=== PATIENT | male | born 2000 | race Caucasian/White ===

== ENCOUNTER 2020-06-29 11:17 | Emergency (ER) | payer BC, OTHER, SELFPAY ==
[2020-06-29 11:23] VITALS: BP 140/68; PULSE 89; RESP 15; TEMP 37.2; O2SAT 98; BMI 32.3
[2020-06-29] MEDS: BACITRACIN OINT 0.9 GM PCKT 1 APPLIC TOP (11:28)
[2020-06-29] MEDS: TET,DIPH,PERTUSS(ACELL),VAC/PF 0.5 ML SYRINGE IM (11:28)
[2020-06-29] MEDS: LIDO 1%/SOD BICARB 8.4% (10ML) 10 ML SYRINGE INJ (11:28)
--- NOTE | 2020-06-29 12:19 | ED.WOUNDLAC ---
HPI - Wound/Laceration <WINSOME Mcmahon - Last Filed: 06/29/20 12:55> General Chief Complaint: Extremity Injury, Upper Stated Complaint: CUT THUMB OF LEFT HAND Time Seen by Provider: 06/29/20 11:20 Source: patient Mode of arrival: Ambulatory Limitations: no limitations History of Present Illness HPI narrative: This is a healthy 19-year-old male, nonsmoker, who presents to ED with mother with chief complain of laceration on his non dominant hand left thumb with a clean pocket knife 20 minutes before he came to ED. patient was opening a box with a pocket knife and accidentally cut dorsal aspect of proximal left thumb. Patient reports is able to move his thumb without difficulty and has intact sensation. He had applied pressure dressing to stop the bleeding. Unknown last tetanus immunization. Patient works as a roofer assistant. Related Data Allergies Allergy/AdvReac Type Severity Reaction Status Date / Time No Known Allergies Allergy Uncoded 06/29/20 11:28 Review of Systems <WINSOME Mcmahon - Last Filed: 06/29/20 12:55> Review of Systems Narrative: General: Denies fever, chills, fatigue, malaise, sweats. Respiratory: Denies dyspnea, cough, wheezing, hemoptysis, sputum. Gastrointestinal: Denies nausea, vomiting, abdominal pain, diarrhea, constipation, melena. Musculoskeletal: See HPI Skin: See HPI Patient History <WINSOME Mcmahon - Last Filed: 06/29/20 12:55> Medical History No significant past medical history Surgical History No pertinent past surgical history Social History Smoking Status: Never smoker Smoking Status: Never smoker alcohol intake frequency: 0-2 drinks per day Substance Use Type: does not use Exam <WINSOME Mcmahon - Last Filed: 06/29/20 12:55> Narrative Exam Narrative: General appearance: well developed, well nourished, in no acute distress. Head: normocephalic, atraumatic, no scalp lesions, non-tender. ENT:Hearing grossly intact. Airway patent. Neck/Thyroid: neck supple, full range of motion, no visible masses or meningeal signs. No JVD, non-tender without lymphadenopathy. Skin: V shape laceration 2 x 3 cm on left dorsal aspect proximal thumb. Warm and dry and appropriate color for ethnicity. Heart: no clubbing, no cyanosis, no edema. Lungs: Breathing even and unlabored. No stridor. No accessory muscles used. Able to speak in full sentences. Chest: normal shape and expansion. Abdomen: non-obese, non-distended. Neurologic: alert and oriented. Cognitive exam, [employer] and PNS grossly intact on informal exam. Psych: good eye contact, normal affect. Initial Vital Signs Initial Vital Signs: Vital Signs Temperature 99 F 06/29/20 11:23 Pulse Rate 89 06/29/20 11:23 Respiratory Rate 15 06/29/20 11:23 Blood Pressure 140/68 06/29/20 11:23 Pulse Oximetry 98 06/29/20 11:23 Extrem Left upper extremity: hand Details: abnormal to inspection, neuromotor exam normal, neurosensory exam normal, vascular exam Details: radial pulse present and normal capillary refill, normal ROM of fingers (is able move thumb against resistance), no swelling, laceration (left dorasal thumb V shape) and other <Mamadou Rodriguez DO - Last Filed: 06/29/20 13:01> Initial Vital Signs Initial Vital Signs: Vital Signs Temperature 99 F 06/29/20 11:23 Pulse Rate 89 06/29/20 11:23 Respiratory Rate 15 06/29/20 11:23 Blood Pressure 140/68 06/29/20 11:23 Pulse Oximetry 98 06/29/20 11:23 Procedures <WINSOME Mcmahon - Last Filed: 06/29/20 12:55> Laceration Repair Laceration 1: Site: hand (dorsal thumb in proximal phalax) Side (If applicable): left Size (cm): 5 Description: flap Depth: simple, single layer Local Anesthetic: lidocaine 1% and with bicarb Amount of anesthesia used (mL): 2.5 Pre-repair: wound explored and irrigated extensively Skin layer closed with: nylon Size (cm): 4-0 Number of sutures: 5 Technique: simple, interrupted Orthopedic Splinting/Casting Injury #1: Side: left Upper Extremity Injury Location: finger Upper Extremity Immobilizer: finger (other) Placed by: Nursing Additional Comments: Instructions given by nurse on how to use Scores <WINSOME Mcmahon - Last Filed: 06/29/20 12:55> GCS Enrique coma scale eye opening: Spontaneous [place] coma scale verbal response: Orientated Enrique coma scale motor response: Obey commands [place] coma scale total score: 15 Course <WINSOME Mcmahon - Last Filed: 06/29/20 12:55> Orders Ordered: Discontinued Medications Bacitracin (Bacitracin Oint 0.9 Gm Pckt) 1 applic TOP NOW ONE Stop: 06/29/20 11:25 Last Admin: 06/29/20 11:28 Dose: 1 applic Documented by: JORGE Diphtheria/Tetanus/Acell Pertussis (Tet,Diph,Pertuss(Acell),Vac/Pf 0.5 Ml Syringe) 0.5 ml IM .ONCE ONE Stop: 06/29/20 11:25 Last Admin: 06/29/20 11:28 Dose: 0.5 ml Documented by: JORGE Lidocaine/Sodium Bicarbonate (Lido 1%/Sod Bicarb 8.4% (10ml) 10 Ml Syringe) 10 ml INJ NOW ONE Stop: 06/29/20 11:25 Last Admin: 06/29/20 11: Dose: 10 ml Documented by: JORGE Vital Signs Vital signs: Vital Signs - 8 hr 06/29/20 11:23 06/29/20 12:47 Temperature 99 F Pulse Rate 89 91 H Respiratory Rate 15 18 Blood Pressure 140/68 122/57 L Pulse Oximetry 98 96 <Mamadou Rodriguez DO - Last Filed: 06/29/20 13:01> Orders Ordered: Discontinued Medications Bacitracin (Bacitracin Oint 0.9 Gm Pckt) 1 applic TOP NOW ONE Stop: 06/29/20 11:25 Last Admin: 06/29/20 11:28 Dose: 1 applic Documented by: JORGE Diphtheria/Tetanus/Acell Pertussis (Tet,Diph,Pertuss(Acell),Vac/Pf 0.5 Ml Syringe) 0.5 ml IM .ONCE ONE Stop: 06/29/20 11:25 Last Admin: 06/29/20 11:28 Dose: 0.5 ml Documented by: JORGE Lidocaine/Sodium Bicarbonate (Lido 1%/Sod Bicarb 8.4% (10ml) 10 Ml Syringe) 10 ml INJ NOW ONE Stop: 06/29/20 11:25 Last Admin: 06/29/20 11:28 Dose: 10 ml Documented by: JORGE Vital Signs Vital signs: Vital Signs - 8 hr 06/29/20 11:23 06/29/20 12:47 Temperature 99 F Pulse Rate 89 91 H Respiratory Rate 15 18 Blood Pressure 140/68 122/57 L Pulse Oximetry 98 96 MDM - Wound/Laceration <WINSOME Mcmahon - Last Filed: 06/29/20 12:55> Differential Diagnosis Differential diagnosis: Likely laceration Medical Records Attestation: I reviewed the patient's medical records. [facility] Narrative Medical decision making narrative: This is a 19-year-old male who presents to ED with v-shaped laceration measuring 2 x 3 cm on left dorsal aspect of proximal left thumb from a clean knife this morning when he was opening a box. Patient has intact sensation and is able to move affected finger against resistance of flexion, extension, lateral deviation. Laceration repair paired with 5 sutures after the digital block. Please see procedure note. Patient provided with thumb splint since he works as a roofer assistant and we discussed to avoid excessive flexion and extension of affected finger to prevent rupturing sutures. We discussed wound care, wound recheck in 2 days, suture removal in 7-10 days which patient verbalized understanding in agreement with the treatment plan. Discharge Plan Departure Patient Disposition: Home Clinical Impression: Finger laceration Qualifiers: Encounter type: initial encounter Finger: thumb Damage to nail status: without damage Foreign body presence: without foreign body Laterality: left Qualified Code(s): S61.012A - Laceration without foreign body of left thumb without damage to nail, initial encounter Instructions: DI for Laceration Repair -- Finger Activity Restrictions/Additional Instructions: You have been diagnosed with [left non dominant hand thumb laceration repaired with 5 sutures.]. What to do: *Take your medications as directed. You can take [id number] Tylenol and or Motrin as needed for discomfort. Please do not get your wound soaked in the water until suture removal. Keep your dressing intact for next 24 hrs. After then, you could remove your dressing, wash with soap and water. Pat dry with clean paper towel and dress it with antibiotic ointment. You can change dressing as needed and daily. Please monitor for signs and symptoms for infection such as increasing redness, swelling, warmth, pain, fever, purulent discharge. If this occurs, please return to ED or follow up with your primary care physician since your wound may be gotten infected. Please follow up with your primary care provider in 2-3 days for recheck wound. Your suture should be removed [ 7-10 ] days. This can be done by your primary provider, walk-in clinic or here in ED. Please keep your wound clean, dry and intact all times. *Return to ED if you have any new, worsening, or concerning symptoms, such as [chest pain, breathing difficulty, unable to tolerate fluids, or signs and symptoms of infection discussed as above or any acute concerns]. Referrals: [facility] Resources [Outside] <Mamadou Rodriguez, DO - Last Filed: 06/29/20 13:01> [facility] Dr Rodriguez Co-Sign Statement: I was available for consultation during this patient's emergency department visit. This chart is signed by myself for administrative purposes only. I did not have direct contact with this patient during this visit. They were seen independently by the APC.
[2020-06-29 12:47] VITALS: BP 122/57; PULSE 91; RESP 18; O2SAT 96
== END 2020-06-29 12:48 | disposition home or self-care (01) ==
PROVIDERS: Emergency Provider Nurse Practitioner Family
DX: S61.012A Laceration without foreign body of left thumb without damage to nail, initial encounter (principal); W26.0XXA Contact with knife, initial encounter; Z23 Encounter for immunization
CPT/HCPCS: 12002; 29130; 90471; 99281; 99283; 90715